=== PATIENT | male | born 1980 | race Caucasian/White ===

== ENCOUNTER 2017-05-07 22:46 | Emergency (ER) | payer OTHER ==
[~2017-05-07 22:46] MED LIST: LORTA5 PO; MOBI15TA PO; TRAZ100 PO
[2017-05-07 22:55] VITALS: BP 121/68; PULSE 112; RESP 18; O2SAT 98
--- NOTE | 2017-05-08 00:57 | PD ---
HPI Chief Complaint: Psychiatric Symptoms Time Seen by Provider: 00:54 Travel History International Travel<30 days: No Contact w/Intl Traveler<30days: No Traveled to known affect area: No History of Present Illness HPI 36-year-old white male presents to emergency department as a transfer from [facility] or at [facility] under a Galindo act. The physician in the ER placed the patient under Galindo act after making suicidal and homicidal statements. The patient states that he's been feeling depressed and having thoughts of self-harm. He went to the ER to get help. He states that he's had a lot of psychosocial issues at home. He denies any toxic ingestions. He denies any recent medical complaints. The patient denies any active plan on self-harm. He denies any true homicidal ideation PFSH Past Medical History Narrative Medical Kidney stones, depression, anxiety Diminished Hearing: No Tetanus Vaccination: < 5 Years ?: Not Past Surgical History Narrative Surgical Lithotripsy, stent placement Social History Alcohol Use: No Tobacco Use: Yes (1 pk q 3 d) Substance Use: No Allergies-Medications (Allergen,Severity, Reaction): Coded Allergies: No Known Allergies (Unverified , 05/01/15) Reported Meds & Prescriptions Reported Meds & Active Scripts Active Mobic (Meloxicam) 15 Mg Tab 15 Mg PO DAILY [place] 5/325 (Hydrocodone/Acetaminophen 5/325) 5 mg/325 mg Tab 1 Tab PO Q6H PRN Reported Trazodone Hcl (Trazodone HCl) 100 Mg Tab 100 Mg PO HS Review of Systems Except as stated in HPI: all other systems reviewed are Neg Psychiatric: Positive: Anxiety, Depression, Suicidal Ideations, Mood Disorder, Homicidal Ideation, No: Disorder of Thought, Substance Abuse Physical Exam Narrative GENERAL: Well-nourished, well-developed patient. SKIN: Warm and dry. HEAD: Normocephalic and atraumatic. EYES: No scleral icterus. No injection or drainage. ENT: No nasal drainage noted. Mucous membranes pink. Airway patent. NECK: Supple, trachea midline. Moves head freely without obvious discomfort. CARDIOVASCULAR: Regular rate and rhythm without murmurs, gallops, or rubs. RESPIRATORY: Breath sounds equal bilaterally. No accessory muscle use. GASTROINTESTINAL: Abdomen soft, non-tender, nondistended. EXTREMITIES: No cyanosis or edema. BACK: Nontender without obvious deformity. No CVA tenderness. NEURO: Patient is alert and oriented. no sensorimotor deficits. Nonfocal. Normal speech. PSYCH: No delusions. No auditory or visual hallucinations. Data Data Last Documented VS Vital Signs Date Time Temp Pulse Resp B/P Pulse Ox O2 Delivery O2 Flow Rate FiO2 05/07/17 22:55 112 18 121/68 98 Room Air Orders Psych Screen (05/08/17 00:19) Diet Regular Basic (05/08/17 Breakfast) MDM Medical Decision Making Medical Screen Exam Complete: Yes Emergency Medical Condition: Yes Medical Record Reviewed: Yes Interpretation(s) I reviewed the patient's laboratory testing from [facility]. Differential Diagnosis MDM: High Differential diagnoses: Schizophrenia, schizoaffective disorder, bipolar, anxiety, depression, adjustment reaction, mood disorder NOS, ODD, depressive disorder NOS, dementia, dementia with agitation, psychosis NOS, substance induced mood disorder, intermittent explosive disorder, Asperger syndrome, infection,electrolyte abnormality, malingering. Narrative Course Mental health screening discussed with the patient. Psychiatric screen ordered. The patient's been medically cleared. This is medical clearance for psychiatric admission Diagnosis Primary Impression: Medical clearance for psychiatric admission Condition: Gary Box May 08, 2017 00:57
[2017-05-08 02:00] VITALS: BP 123/59; PULSE 85; RESP 18; O2SAT 98
[2017-05-08 06:13] VITALS: BP 136/68; PULSE 75; RESP 18; O2SAT 98
--- NOTE | 2017-05-08 11:11 | PD ---
History of Present Illness Chief Complaint: Psychiatric Symptoms Time Seen by Provider: 10:00 Travel History International Travel<30 Days: No Contact w/Intl Traveler<30days: No Known affected area: No Legal Status Legal Status: Involuntary Galindo Act Signed By: Lianne Galindo Act Comment: CERTIFICATE OF PROFESSONAL INITIATING INVOLUNTARY EXAMINATION05/07/17@1300 History of Present Illness: 36-year-old male admitted to [facility] last night by this physician, from an outside hospital. Patient was Galindo acted at outside hospital due to suicidal and homicidal ideation. He reportedly has a history of bipolar disorder and has not been on medication. He was also intoxicated with alcohol. This morning, the patient is calm, pleasant and cooperative. He denies any suicidal or homicidal ideation, plan or intent. He lives with his parents and would like to return to them. He would also like to start taking his mood stabilizing medication again. This physician is therefore prescribing him Seroquel per his request. Patient's cognition is intact and he is competent as well as verbally selene for safety. PFSH Past Medical History Medical History: Denies Significant Hx Diminished Hearing: No Tetanus Vaccination: < 5 Years ?: Not Psychiatric History Psychiatric History Hx Psychiatric Treatment: .PATIENT DENIES PSYCH HISTORY DURING SCREEN BUT, HAS A PHYSICIAN'S GALINDO ACT THAT STATES "BI- POLAR DISORDER", AND HE STATES TO THE PA THAT HE HAS A HISTORY OF "ANXIETY". This physician does not currently find any significant objective clinical evidence of a mood disorder. The concern is that the patient's alcohol use triggered his suicidal and homicidal thinking last night. History of Inpatient Treatment: No Guns or firearms in home: No Social History Hx Alcohol Use: No Hx Tobacco Use: Yes (1 pk q 3 d) Hx Substance Use: No Hx of Substance Use Treatment: No Allergies-Medications (Allergen,Severity, Reaction): Coded Allergies: No Known Allergies (Unverified , 05/01/15) Reported Meds & Prescriptions Reported Meds & Active Scripts Active Mobic (Meloxicam) 15 Mg Tab 15 Mg PO DAILY [place] 5/325 (Hydrocodone/Acetaminophen 5/325) 5 mg/325 mg Tab 1 Tab PO Q6H PRN Reported Trazodone Hcl (Trazodone HCl) 100 Mg Tab 100 Mg PO HS Review of Systems Except as stated in HPI: all other systems reviewed are Neg Exam Alert: Yes [place]: Person, Place, Date, Situation Mood: Calm Affect: Appropriate, Euthymic Speech: Clear, Logical Eye Contact: Normal Memory Intact: Immediate, Recent, Remote Insight/Judgement Adequate MDM Medical Decision Making Medical Record Reviewed: Yes Assessment/Plan This physician reviewed the patient's record and spoke to the patient's nurse regarding his recent behavior. Patient is currently calm, pleasant and cooperative. He is no longer intoxicated. He shows no evidence of psychotic thinking. He denies any suicidal or homicidal ideation, plan or intent. His cognition is intact and he is verbally selene for safety. This physician does not feel he meets Galindo act criteria or inpatient psychiatric criteria at this time. However, the patient is being given a prescription of Seroquel per his own request. Orders Psych Screen (05/08/17 00:19) Diet Regular Basic (05/08/17 Breakfast) Diet Regular Basic (05/08/17 Lunch) Results Vital Signs Date Time Temp Pulse Resp B/P Pulse Ox O2 Delivery O2 Flow Rate FiO2 05/08/17 06:13 75 18 136/68 98 Room Air 05/08/17 02:00 85 18 123/59 98 Room Air 05/07/17 22:55 112 18 121/68 98 Room Air Diagnosis Primary Impression: Adjustment disorder with mixed disturbance of emotions and conduct Additional Impression: Alcohol abuse Condition: Stable Problem Qualifiers George Taylor MD May 08, 2017 11:11
[2017-05-08] MEDS ORDERED: SERO100T PO (11:24)
[2017-05-08 12:39] VITALS: BP 136/68; PULSE 75; RESP 18; O2SAT 98
[2017-05-08] MEDS ORDERED: QUEtiapine FUMARATE 100 MG TAB PO SCH (21:00)
== END 2017-05-08 14:42 | disposition home or self-care (01) ==
LOC: NEPJ 22:46
DX: R45.851 Suicidal ideations (principal); R45.850 Homicidal ideations; F17.210 Nicotine dependence, cigarettes, uncomplicated
CPT/HCPCS: 99285